=== PATIENT | female | born 1960 | race Caucasian/White ===

== ENCOUNTER 2017-09-23 15:43 | Inpatient (IN) | payer OTHER ==
[~2017-09-23] VITALS: Ht 147.3 cm; Wt 50.4 kg
[2017-09-23] MEDS ORDERED: VITAMIN D31000 UNIT PO (16:27)
[2017-09-23] MEDS ORDERED: CALCIUM 500 MG1 EACH PO (16:28)
[2017-09-23] MEDS ORDERED: ONE-A-DAY WOME1 EAC1 PO (16:28)
[2017-09-23 19:30] VITALS: BP 142/70
[2017-09-24] VITALS (7 sets, daily range): BP systolic 135–182; BP diastolic 67–85
[2017-09-24 06:01] LABS: BASOPHIL (%) 0 % (0-1); EOSINOPHIL (%) 0.2 % (0-5); HEMATOCRIT 35.6 % (36.0-46.0); HEMOGLOBIN 11.7 G/DL (11.9-15.5); IMMATURE GRANULOCYTE (%) 0.2 % (0.0-0.7); LYMPHOCYTE (%) 17.9 % (15-42); LYMPHOCYTE COUNT 0.9 K/uL (1.0-2.8); MCH 31.2 PG (29.0-34.0); MCHC 32.9 G/DL (30.0-36.0); MCV 94.9 FL (83-99); MONOCYTE (%) 8.5 % (3-12); MONOCYTE COUNT 0.4 K/uL (0-0.8); NEUTROPHIL (%) 73.2 % (45-76); NEUTROPHIL COUNT 3.7 K/uL (1.8-6.4); PLATELET COUNT 217 K/uL (156-360); RBC DIS.WIDTH-CV 12.8 % (11.8-14.6); RBC DIS.WIDTH-SD 44.4 % (39-53); RED BLOOD COUNT 3.75 M/uL (3.80-5.20)
[2017-09-24 06:23] LABS: CHLORIDE 106 MEQ/L (99-109); CREATININE 0.5 MG/DL (0.6-1.3); GFR ESTIMATE (CALCULATED) > 59 mL/min/; GLUCOSE 116 mg/dL (70-99); POTASSIUM 3.6 MEQ/L (3.7-5.4); SODIUM 140 MEQ/L (136-147); UREA NITROGEN (BUN) 13 mg/dL (9-23)
[2017-09-25 05:27] VITALS: BP 143/71
[2017-09-25 07:56] VITALS: BP 156/71
[2017-09-25] MEDS ORDERED: OXYCODONE HCL5 MG PO (11:08)
[2017-09-25] MEDS ORDERED: MOTRIN600 MG PO (11:08)
== END 2017-09-25 14:13 | disposition home or self-care (01) | DRG 184 ==
LOC: TRA 15:43 → EDOF 16:30 → 3EAST 16:30 → ENRESERV 17:20 → 3EAST 19:19
PROVIDERS: Surgery
DX: S22.20XA Unspecified fracture of sternum, initial encounter for closed fracture (principal); S22.32XA Fracture of one rib, left side, initial encounter for closed fracture; S23.41XA Sprain of ribs, initial encounter; V43.62XA Car passenger injured in collision with other type car in traffic accident, initial encounter; Y92.410 Unspecified street and highway as the place of occurrence of the external cause; J98.11 Atelectasis; M81.0 Age-related osteoporosis without current pathological fracture; M54.2 Cervicalgia
CPT/HCPCS: 71045; 80048; 85025; 99281; 99284; J1885